=== PATIENT | female | born 1990 | race Caucasian/White ===

== ENCOUNTER 2016-09-24 19:57 | Emergency (ER) | payer OTHER ==
[~2016-09-24] VITALS: Ht 167.6 cm; Wt 77.3 kg
[~2016-09-24 19:57] MED LIST: DOCU-41 PO; HYDR-4003 PO; IBUP-1152 PO; IBUP800T28 PO; VIC5 PO
[2016-09-24 20:05] VITALS: BP 126/80; PULSE 59; RESP 16; O2SAT 100
--- NOTE | 2016-09-24 20:37 | ED.REPORT ---
HPI-Extremity Problem Lower Date of Service Sep 24, 2016 ED Provider: Eliu Maddox MD Patient is a healthy 26 year old female who presents to the ED with bilateral thigh pain onset tonight, after playing softball. The patient denies any numbness, tingling, weakness, injury/trauma to the area, or other symptoms. She is able to ambulate normally. Nursing Notes Stated Complaint: PULLED MUSCLE, LEFT LEG Chief Complaint: Extremity Trauma Nursing Notes Reviewed: Yes Allergies: Coded Allergies: No Known Allergies (Verified , 09/24/16) Scheduled Docusate Sodium (Colace) 100 Mg Capsule 100 MG PO BID Scheduled PRN Hydrocod/APAP-Expunged, Do Not Renew! (Vicodin-Expunged Drug, Do Not Renew) 1 Tab Tab 1-2 TAB PO Q4 PRN PRN Hydrocodone-Acetaminophen 5-325 mg (Hydrocodone-Acetaminophen 5-325 mg) 1 Each Tablet 1-2 TABLET PO Q4H PRN PRN For Pain IBUPROFEN-Expunged Drug, Do Not Renew! (IBUPROFEN-Expunged Drug, Do Not Renew!) 800 Mg Tablet 800 MG PO TID PRN PRN Ibuprofen (Ibuprofen) 800 Mg Tablet 800 MG PO Q6H PRN PRN For Pain General Time Seen by MD: 20:35 Chief Complaint Other (Bilateral thigh pain) Hx Obtained From: Patient Arrived By: Walk-in Onset Occurred: 1 - 4 hours ago Symptom Duration: Since onset Location: : Thigh left: Thigh right Quality: Painful Severity: Current: Moderate Severity: Maximum: Moderate Pertinent Negative: Relieved by nothing Immunizations: Unknown Recent Healthcare: No recent doctor visit Past Medical History Past Medical History None reported Past Surgical History None reported Smoking History Never Smoker Ambulatory Status Independent Review of Systems Review of Systems Note: - Tingling Constitutional: Denies: Chills, Fever Musculoskeletal: Reports: Extremity pain (Bilateral thighs) Neurologic: Denies: Numbness, Problem walking, Weakness Complete sys rev & neg: except as marked. Respiratory: Denies: Non-productive cough, Shortness of breath GI: Denies: Diarrhea, Vomiting Physical Exam Initial Vital Signs Vital Signs (First) Date Time Temp Pulse Resp B/P Pulse Ox O2 Delivery O2 Flow Rate FiO2 09/24/16 20:05 36.5 59 16 126/80 100 Room Air Initial VS: Reviewed Head / Eyes: Atraumatic, Normocephalic ENT: Conjunctiva normal, No scleral icterus Neck: Supple, Full range of motion Skin: Warm, Dry, No cyanosis Neurologic: Alert, Oriented, Nonfocal Psychiatric: Mood/affect normal, Behavior normal, Normal thought content Lower Extremity / Pelvis / MS: Atraumatic, Full range of motion (Full flexion and extension of bilateral hips and knees), Neurologic intact, Vascular intact Right Thigh: Positive: Tenderness present... (Gluteal region) Left Thigh: Positive: Tenderness present... (Over quadriceps muscle) General/Constitutional: Awake, Alert, No acute distress Interpretation & Diagnostics URINE : Negative Lab Results Interpretation Test 09/24/16 21:12 Hold Urine Received (Received) Re-Eval/Medical Decision Med Decision/Clinical Course Patient is a healthy 26 year old female who presents to the ED with bilateral thigh pain onset tonight, after playing softball. The patient denies any numbness, tingling, weakness, injury/trauma to the area, or other symptoms. She is able to ambulate normally. URINE : Negative Here in the emergency department the patient is comfortable and in no apparent distress with examination as above. No evidence of fracture. No indication to obtain imaging studies. Patient neurovascularly intact. Treated with Toradol for pain. Advised to take ibuprofen, stretch and apply ice packs. Prior to discharge follow-up and return precautions were reviewed in detail with the patient who verbalized understanding and agreement with the plan. The patient was discharged in stable condition. Re-Evaluation/Progress : Time of Eval: 22:20 Patient Status: Condition improved Re-Evaluation/Progress Note: Discussed with patient physical exam findings, diagnosis, and plan for discharge. Follow-up and return to the ER instructions given. Patient agrees with plan for care and all questions were addressed. Counseled Regarding: Diagnosis, Lab results, Need for follow-up, When/why to return to ED Discharge & Departure Impression: Primary Impression: Muscle strain Disposition: Home Discharge Condition All VS Reviewed: Yes Condition: Improved Additional Instructions: Thank you for seeking care at the emergency room. It is difficult for us to make definitive diagnoses in the ED but we believe that you are experiencing a muscle strain. Our primary goal today in the ED was to evaluate you for any life-threatening conditions. Your evaluation was reassuring. Use Tylenol or Ibuprofen as directed for pain. You should follow-up with your primary doctor in the next week. You should return to the ED immediately if you develop fevers, vomiting, cough, shortness of breath, chest pain, lightheadedness, weakness or any other concerning signs or symptoms. Thank you for letting us partake in your care today. Referrals: Lana Felix MD (PCP) Scribe Attestation Portions of this note were transcribed by Diana Cesar. I, Dr. Maddox, personally performed the history, physical exam, and medical decision-making; I reviewed and confirmed the accuracy of the information in the transcribed note. Signed by: Stephen Salazar, 09/24/2016, 23:15 copies to: Lana Felix MD, Beck O MD Sep 24, 2016 20:37 DIANA CESAR Sep 24, 2016 22:23
== END 2016-09-24 22:47 | disposition home or self-care (01) ==
LOC: SED 19:57
DX: S76.911A Strain of unspecified muscles, fascia and tendons at thigh level, right thigh, initial encounter (principal); S76.912A Strain of unspecified muscles, fascia and tendons at thigh level, left thigh, initial encounter; X50.1XXA Overexertion from prolonged static or awkward postures, initial encounter; Y93.64 Activity, baseball; Y92.89 Other specified places as the place of occurrence of the external cause; Y99.8 Other external cause status
CPT/HCPCS: 81025; 96372; 99284; J1885